=== PATIENT | female | born 1995 | race African-American/Black ===

== ENCOUNTER 2018-05-19 10:25 | Emergency (ER) | payer MEDICAID ==
--- NOTE | 2018-05-19 12:04 | ULT ---
PELVIC SONOGRAM TRANSABDOMINAL AND TRANSVAGINAL IMAGING WITH DUPLEX EVALUATION: HISTORY: Pelvic pain. FINDINGS: Urinary bladder is unremarkable. Uterus has a heterogeneous echotexture and is 11.9 cm. Cystic stru cture within the endometrial cavity correlates with a gestational size of 6 weeks 0 days. pole and yolk sac are not visible. Minimal free fluid within the pelvis. Right ovary is 2.4 cm and the left is 2.4 cm. Each has a normal appearance and demonstrates good col or and spectral Doppler flow. IMPRESSION: Cystic structure within the endometrial cavity correlates with gestational size of 6 weeks 0 days. I ntrauterine or extrauterine pole not visualized. Close continued sonographic followup regardin g beta HCG levels is required. Findings were called to Dr. Shanks in the emergency department at 1152 hours. CODE CR POS: [id number]
== END 2018-05-19 12:32 | disposition home or self-care (01) ==
LOC: ERS 10:25
DX: O20.0 Threatened abortion (principal); Z3A.01 Less than 8 weeks gestation of pregnancy
CPT/HCPCS: 76856